=== PATIENT | male | born 1995 | race Caucasian/White ===

== ENCOUNTER 2021-10-22 18:29 | Emergency (ER) | payer MEDICAID, SELFPAY ==
[2021-10-22 18:39] VITALS: BP 126/81; PULSE 97; RESP 16; O2SAT 96
--- NOTE | 2021-10-22 18:54 | W.ED.GENADLT ---
HPI - General Adult General: Chief complaint: Psychiatric Symptoms Stated complaint: psych eval Time Seen by Provider: 10/22/21 18:31 History of Present Illness: HPI: [26]yo patient w/ hx of polysubstance use presenting to the emergency room for concerns of suicidal ideation. On arrival, patient tells me that he no thoughts of suicidal ideation, and does not currently have a plan. Patient tells me that he is currently homeless and does not have a place to go. On arrival, the patient is AAOx3 and cooperative with my evaluation. No focal complaints of chest pain, shortness of breath, palpitations, N/V, focal GI/ complaints. Currently denies SI/HI. Patient tells me that he hears voices but the voices are not telling him to hurt other people or himself. Onset: acute Duration: ongoing Location: home Severity: moderate Associated symptoms: Deny chest pain, dyspnea, nausea, rash, palpitations or vomiting Review of Systems Const: Denies: fever(s) or chills Eyes: Denies: change in vision ENMT: Denies: mouth pain Card: Denies: chest pain or palpitations Resp: Denies: dyspnea or non-productive cough GI: Denies: abdominal pain, nausea, vomiting or diarrhea : Denies: dysuria Musc: Denies: extremity pain Skin/Breast: Denies: rash or new lesions Neuro: Denies: weakness in extremities Psych: Reports: auditory hallucinations and other (Normal mood) Javid/Lymph: Denies: easy bruising PFS ED PFSH: Medical History Depression Social History (Updated 10/22/21 @ 19:12 by Wil Lujan MD) Smoking and tobacco status: current every day smoker Alcohol intake: never Substance/Drug Use: current Substance/Drug use frequency: daily Substance/Drug use type: Marijuana, Crack/Cocaine and Methamphetamine Physical Exam Const: COMMON NORMALS: alert HENMT: COMMON NORMALS: atraumatic HEAD & SCALP: atraumatic MOUTH: moist mucous membranes not abnormal Eye: COMMON NORMALS: EOMs intact bilaterally and conjunctivae normal CONJUNCTIVA: Yes conjunctivae normal Neck/C-Spine: COMMON NORMALS: full ROM and supple Resp: COMMON NORMALS: normal respiratory effort and clear to auscultation bilaterally AUSCULTATION: clear to auscultation bilaterally Cardio: COMMON NORMALS: regular rate RATE: regular rate GI: COMMON NORMALS: Soft to palpation and non-tender PALPATION: Yes Soft to palpation Extremity: COMMON NORMALS: full ROM Neuro: SENSORIUM/ORIENTATION: Yes alert MOTOR EXAM: No Abnormal motor strength present and Other motor observations present (no focal motor deficits) Psych: COMMON NORMALS: speech normal SPEECH: Yes normal speech MOOD & AFFECT: Yes euthymic mood Course Vital Signs: Vital signs: Vital Signs Pulse Rate 97 10/22/21 18:39 Respiratory Rate 16 10/22/21 18:39 Blood Pressure 126/81 10/22/21 18:39 Pulse Oximetry 96 10/22/21 18:39 MDM - General Adult Medical Decision Making [26]yo patient w/ hx of depression and polysbustance use presenting for concerns of SI. Patient currently does not endorse any SI. Patient tells me that he is homeless and needs a place to stay.. HDS, exam within normal limit Thoughts are linear and organized, and the patient has no AH/VH, or HI. Clinically the patient displays no overt toxidrome; they are well appearing, with low suspicion for toxic ingestion given history and exam. Symptoms unlikely 2/2 anemia, hypothyroidism, infection, or ICH. [7:30pm] On reassessment, patient is hemodynamically stable with no acute medical complaints. Case discussed with psychiatric provider Dr. Dick at [facility] psych inpatient who evaluated patient via telepsych and recommended discharge with close follow-up. Disposition: Discharge. We will attempt to have patient placed in homeless halfway either tonight or tomorrow morning. Discharge Plan Discharge Patient Disposition: Home Clinical Impression: Adult general medical exam Discharge Orders: Discharge ED (Routine); Ordered 10/22/21 Ordered By: Wil Lujan Discharge Diet: Advance as tolerated Discharge Activity: Increase activity as tolerated Activity Restrictions/Additional Instructions: Please come back to the emergency room if you need help, have any hallucinations, or you have any depression or have thoughts about hurting yourself or other people. Coding Level of Care Code ED Oyster Worker for Leanna Fwd Exam Comprehensive
[2021-10-22] MEDS: pantoprazole DR 40 mg Tablet PO (19:26)
[2021-10-22] MEDS: lidocaine 2% viscous 15 ML, aluminum-mag hydrox-simethicon 30 ML, sucralfate oral liq 1 GM PO (19:26)
== END 2021-10-22 19:42 | disposition home or self-care (01) ==
PROVIDERS: Emergency Provider Emergency Medicine
DX: R45.851 Suicidal ideations (principal); Z59.00 Homelessness unspecified; F32.A Depression, unspecified
CPT/HCPCS: 99283

== ENCOUNTER 2021-10-23 01:45 | Emergency (ER) | payer MEDICAID, SELFPAY ==
[2021-10-23 01:49] VITALS: BP 115/73; PULSE 77; RESP 17; O2SAT 99; BMI 20.7
[2021-10-23 01:53] VITALS: BP 118/73; PULSE 80; RESP 14; O2SAT 97
--- NOTE | 2021-10-23 02:07 | ED.C_ITS ---
HPI - Psych General: Chief Complaint: Psychiatric Symptoms Stated Complaint: MHE Time Seen by Provider: 10/23/21 01:49 Source: patient Mode of arrival: ambulatory Limitations: no limitations History of Present Illness: 26-year-old male who was seen here earlier for depression he is also homeless. Patient was discharged had been staying in the waiting room and was asked to leave he checked back in. Has not found he said he had thoughts of suicide he is denying it currently he states that he just wants a sandwich and needs a place to stay. He denies any suicidal thoughts to me. Associated symptoms: Reports depression and suicidal ideation Review of Systems Const: Denies: fever(s), chills, body aches or change in appetite Eyes: Denies: blurry vision or eye discomfort ENMT: Denies: throat pain or dental pain Card: Denies: chest pain Resp: Denies: dyspnea GI: Denies: abdominal pain, nausea, vomiting or diarrhea : Denies: dysuria Musc: Denies: neck pain or back pain Skin/Breast: Denies: rash Neuro: Denies: headache(s) Psych: Reports: depression and suicidal ideation Javid/Lymph: Denies: easy bruising All/Imm: Denies: urticaria PFSH ED PFSH: Medical History Depression Social History Smoking and tobacco status: current every day smoker Alcohol intake: never Physical Exam Const: COMMON NORMALS: no acute distress, patient oriented x3 and healthy appearing HENMT: COMMON NORMALS: normocephalic and atraumatic HEAD & SCALP: no rmocephalic and atraumatic Eye: COMMON NORMALS: Equal, round and reactive pupils present and EOMs intact bilaterally PUPIL: Yes Equal, round and reactive pupils present Neck/C-Spine: COMMON NORMALS: full ROM and supple Chest: COMMONS NORMALS: normal inspection of the chest and normal palpation of entire chest wall Resp: COMMON NORMALS: normal respiratory effort, No retractions, No use of accessory muscles and clear to auscultation bilaterally AUSCULTATION: clear to auscultation bilaterally Cardio: COMMON NORMALS: regular rate, regular rhythm and No murmurs present (Cardio) RATE: regular rate RHYTHM: regular rhythm GI: COMMON NORMALS: Normal to inspection, nondistended, normoactive bowel sounds present, Soft to palpation, non-tender and no masses PALPATION: Yes Soft to palpation Extremity: COMMON NORMALS: normal to inspection and full ROM Neuro: COMMON NORMALS: patient oriented x3, moves all extremities and no focal motor deficits Psych: COMMON NORMALS: mental status grossly normal, Normal thought process present and cooperative THOUGHT PROCESS: Normal thought process present Skin: COMMON NORMALS: no rashes or lesions noted and no wounds GENERAL SKIN EXAM: no rashes or lesions noted Course Vital Signs: Vital signs: Vital Signs Pulse Rate 77 10/23/21 01:49 Respiratory Rate 17 10/23/21 01:49 Blood Pressure 115/73 10/23/21 01:49 Pulse Oximetry 99 10/23/21 01:49 MDM - Psych Medical Decision Making Patient presents here with homelessness he checked back in when he is asked to leave the hospital he initially said that he was suicidal but he denies it to me he states that he really wants a place to stay I did tell him that we run into beds and he does not want to be transferred I spoke to psychiatry Dr. Dick who did evaluate him earlier who feels he is not actively suicidal I agree with this I believe patient stable for discharge we will discharge him at this time. Discharge Plan Discharge Patient Disposition: Home Clinical Impression: Homeless, Depression Condition: Stable Discharge Orders: Discharge ED (Routine); Ordered 10/23/21 Ordered By: Pa Cunha Discharge Diet: Advance as tolerated Discharge Activity: Resume usual activity Patient Instructions: Depression (ED) Coding Level of Care Code ED Commercial Ocean Clammer for Leanna Cuevas
[2021-10-23 03:34] VITALS: BP 118/73; PULSE 80; RESP 14; O2SAT 97
== END 2021-10-23 03:37 | disposition home or self-care (01) ==
PROVIDERS: Emergency Provider Emergency Medicine
DX: F32.A Depression, unspecified (principal); Z59.00 Homelessness unspecified; F17.210 Nicotine dependence, cigarettes, uncomplicated
CPT/HCPCS: 99283

== ENCOUNTER 2023-10-30 11:23 | Emergency (ER) | payer MEDICAID, SELFPAY ==
--- NOTE | 2023-10-30 11:27 | XRR_ITS ---
PROCEDURE INFORMATION: Exam: XR Chest Exam date and time: 10/30/2023 11:47 AM Age: 28 years old Clinical indication: Pain; Angina pectoris; Additional info: Cp TECHNIQUE: Imaging protocol: Radiologic exam of the chest. Views: 1 view. COMPARISON: No relevant prior studies available. FINDINGS: Lungs: Unremarkable. No consolidation. Pleural spaces: Unremarkable. No pleural effusion. No pneumothorax. Heart/Mediastinum: Unremarkable. No cardiomegaly. Bones/joints: Unremarkable. XR/XR chest 1V portable [id number] IMPRESSION: No acute findings.
--- NOTE | 2023-10-30 11:34 | ECG_ITS ---
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 Measurements Intervals [place] Rate: 84 P: 69 IN: 145 QRS: 104 QRSD: 89 T: -10 QT: 343 QTc: 406 Interpretive Statements SINUS RHYTHM RIGHT AXIS DEVIATION [QRS AXIS > 100] POSSIBLE RIGHT VENTRICULAR CONDUCTION DELAY [RSR (QR) IN V1/V2] MINIMAL ST DEPRESSION [0.025+ mV ST DEPRESSION] ABNORMAL QRS-T ANGLE [QRS-T AXIS DIFFERENCE > 60] INTERPRETATION BASED ON A DEFAULT AGE OF 40 YEARS No previous ECG available for comparison Electronically Signed On 10-30-2023 22:22:20 CDT by Brian Potts M.D. [id number]
[2023-10-30 11:42] VITALS: BP 111/64; PULSE 88; RESP 17; TEMP 37.2; O2SAT 98; BMI 22.9
[2023-10-30 14:05] VITALS: BP 132/73; PULSE 85; RESP 18
--- NOTE | 2023-10-30 14:32 | ED_ITS ---
HPI - Chest Pain 2 General: Chief Complaint: Chest Pain Stated Complaint: chest pain, dry cough, right hand tingles Time Seen by Provider: 10/30/23 13:59 Source: patient Mode of arrival: ambulatory History of Present Illness: 28-year-old male presents emergency room with chest discomfort worse when he takes a deep breath. He has had a nonproductive cough for the last couple days it is also worse. Pads over. He has not particularly been short of breath no fever sweats or chills he has had it off and on for some time now he localizes to the left lower lung field at this time. He is not having any pain at the moment. No rapid heart rate or palpitations. No history of DVT or PE no limb swelling or discomfort. MD complaint: chest pain Pain location: left chest Pain radiation: none Quality: sharp Exacerbating factors: inspiration Associated symptoms: Deny abdominal pain, diaphoresis, dyspnea, fever(s), leg edema, nausea, palpitations, sense of impending doom, syncope or vomiting Treatment prior to arrival: none Review of Systems 2 Const: Denies: fever(s), chills or diaphoresis Card: Denies: chest pain, palpitations or syncope Resp: Denies: dyspnea GI: Denies: abdominal pain, nausea or vomiting : Denies: dysuria, urinary frequency or urinary urgency Musc: Denies: neck pain or back pain Skin/Breast: Denies: rash PFSH ED 2 PFSH: Medical History Depression Social History Smoking and tobacco/nicotine status: current every day tobacco/nicotine user Alcohol intake: never Substance/Drug Use: current Substance/Drug use frequency: daily Physical Exam 2 Const: COMMON NORMALS: no acute distress GENERAL APPEARANCE: cooperative and comfortable ORIENTATION/CONSCIOUSNESS: Yes awake, Yes oriented to person, Yes oriented to place and Yes oriented to time HENMT: COMMON NORMALS: normocephalic, atraumatic and hearing grossly normal bilaterally HEAD & SCALP: normocephalic and atraumatic Resp: COMMON NORMALS: normal respiratory effort, No retractions, No use of accessory muscles and clear to auscultation bilaterally AUSCULTATION: clear to auscultation bilaterally Cardio: COMMON NORMALS: regular rate, regular rhythm and No murmurs present (Cardio) RATE: regular rate RHYTHM: regular rhythm GI: COMMON NORMALS: Soft to palpation and No hepatosplenomegaly present A USCULTATION: Yes normoactive bowel sounds PALPATION: Yes Soft to palpation, No Tenderness to palpation present (GI), No Guarding due to palpation present (GI) and Yes No hepatosplenomegaly present Extremity: COMMON NORMALS: normal to inspection, capillary refill normal, no clubbing, cyanosis or edema, no calf tenderness and no pedal edema Neuro: SENSORIUM/ORIENTATION: Yes oriented to person, Yes oriented to place and Yes oriented to time Skin: COMMON NORMALS: no rashes or lesions noted GENERAL SKIN EXAM: no rashes or lesions noted Course 2 Vital Signs: Vital signs: Vital Signs Temperature 99.0 F 10/30/23 11:42 Pulse Rate 85 10/30/23 14:05 Respiratory Rate 18 10/30/23 14:05 Blood Pressure 132/73 10/30/23 14:05 Pulse Oximetry 98 10/30/23 11:42 Oxygen Delivery Me thod Room Air 10/30/23 11:42 MDM - Chest Pain Medical Decision Making EKG normal troponin normal patient has had this for couple days not cardiac in nature worse when he takes a deep breath. Chest x-ray normal no leukocytosis discharge home pleuritic chest pain anti-inflammatories as needed follow-up as needed. He has no sign of PE or pneumothorax. Medical Records I reviewed the patient's medical records. Lab Data I reviewed the patient's lab results. 10/30/23 14:41 10/30/23 14:41 Radiology Impressions Chest X-Ray 10/30/23 11:27 IMPRESSION: No acute findings. Laboratory Results WBC 6.39 10^3/uL (3.29-11.43) 10/30/23 14:41 RBC 4.45 10^6/uL (3.85-5.65) 10/30/23 14:41 Hgb 13.70 g/dL (11.27-16.99) 10/30/23 14:41 Hct 40.0 % (37-53) 10/30/23 14:41 MCV 89.9 fl (82-101) 10/30/23 14:41 MCH 30.8 pg (27-33) 10/30/23 14:41 MCHC 34.3 g/dL (30-55) 10/30/23 14:41 RDW 12.5 % (12.1-15.1) 10/30/23 14:41 Plt Count 205 10^3/cmm (157-399) 10/30/23 14:41 MPV 10.5 fL (7.4-10.4) H 10/30/23 14:41 Neut % (Auto) 83.5 % 10/30/23 14:41 Lymph % (Auto) 6.7 % 10/30/23 14:41 Cowley % (Auto) 8.1 % 10/30/23 14:41 Eos % (Auto) 0.9 % 10/30/23 14:41 Baso % (Auto) 0.5 % 10/30/23 14:41 Neut # (Auto) 5.33 10^3/uL (1.8-7.7) 10/30/23 14:41 Lymph # (Auto) 0.4 10^3/uL (0.8-4.8) L 10/30/23 14:41 Cowley # (Auto) 0.5 10^3/uL (0.2-0.9) 10/30/23 14:41 Eos # (Auto) 0.1 10^3/uL (0.0-0.8) 10/30/23 14:41 Baso # (Auto) 0.0 10^3/uL (0.0-0.1) 10/30/23 14:41 Nucleated RBC % (auto) 0 % 10/30/23 14:41 Nucleated RBCs # 0.0 /100WBC 10/30/23 14:41 Sodium 136 mmol/L (136-145) 10/30/23 14:41 Potassium 4.1 mmol/L (3.5-5.1) 10/30/23 14:41 Chloride 100 mmol/L (98-107) 10/30/23 14:41 Carbon Dioxide 25 mmol/L (22-29) 10/30/23 14:41 Anion Gap 15.1 (5-19) 10/30/23 14:41 BUN 9 mg/dL (6-20) 10/30/23 14:41 Creatinine 1.1 mg/dL (0.7-1.2) 10/30/23 14:41 GFR Calculation 79.1 mL/min (90-130) L 10/30/23 14:41 Glucose 91 mg/dL (65-115) 10/30/23 14:41 Calculated Osmolality 280 mOsm/kg (285-295) L 10/30/23 14:41 Calcium 9.1 mg/dL (8.5-10.5) 10/30/23 14:41 Total Bilirubin 0.8 mg/dL (0.15-1.2) 10/30/23 14:41 AST 16 U/L (0-40) 10/30/23 14:41 ALT 12 U/L (0-41) 10/30/23 14:41 Alkaline Phosphatase 60 U/L (40-130) 10/30/23 14:41 Troponin T Baseline < 6 ng/L (0-15) 10/30/23 14:41 Total Protein 7.4 g/dL (6.6-8.7) 10/30/23 14:41 Albumin 4.6 g/dL (3.5-5.2) 10/30/23 14:41 Globulin 2.8 g/dL (1.3-4.6) 10/30/23 14:41 All radiology interpretation(s) finalized by discharge Discharge Plan Discharge Patient Disposition: Home Clinical Impression: Pleuritic chest pain Condition: Stable Prescriptions: New diclofenac sodium 75 mg tablet,delayed release (DR/EC) 75 mg PO Q12H PRN (Reason: pain) Qty: 20 0RF Discharge Orders: Discharge ED (Routine); Ordered 10/30/23 Ordered By: Gibran Chilel Discharge Diet: Usual diet Discharge Activity: Increase activity as tolerated Patient Instructions: Pleurisy (ED), Opioid Safety, Pain Management Activity Restrictions/Additional Instructions: Thank you for choosing [facility] for your healthcare needs today. It is very important that you follow up as instructed or that you return to the Emergency Department should you have concerns or if your condition changes or worsens in any way. Coding Level of Care Code ED Child Welfare Consultant for Leanna Cuevas
[2023-10-30 14:48] LABS: Basophils % 0.5 %; Eosinophils # 0.1 10^3/uL (0.0-0.8); Eosinophils % 0.9 %; Lymphocytes # 0.4 10^3/uL (0.8-4.8); Lymphocytes % 6.7 %; Mean Corpuscular HGB Conc 34.3 g/dL (30-55); Mean Corpuscular Hemoglobin 30.8 pg (27-33); Mean Corpuscular Volume 89.9 fl (82-101); Mean Platelet Volume 10.5 fL (7.4-10.4); Monocytes # 0.5 10^3/uL (0.2-0.9); Monocytes % 8.1 %; Neutrophils # 5.33 10^3/uL (1.8-7.7); Neutrophils % 83.5 %; Nucleated Red Blood Cells % 0 %; Platelet Count 205 10^3/cmm (157-399); Red Blood Count 4.45 10^6/uL (3.85-5.65); Red Cell Distribution Width 12.5 % (12.1-15.1); White Blood Count 6.39 10^3/uL (3.29-11.43)
[2023-10-30 15:08] LABS: Alanine Aminotransferase 12 U/L (0-41); Albumin Level 4.6 g/dL (3.5-5.2); Alkaline Phosphatase 60 U/L (40-130); Anion Gap 15.1 (5-19); Aspartate Amino Transferase 16 U/L (0-40); Blood Urea Nitrogen 9 mg/dL (6-20); Calcium 9.1 mg/dL (8.5-10.5); Carbon Dioxide 25 mmol/L (22-29); Chloride 100 mmol/L (98-107); Creatinine Clr Calc Pharmacy 102.0723; Globulin 2.8 g/dL (1.3-4.6); Glomerular Filtration Rate 79.1 mL/min (90-130); Glucose 91 mg/dL (65-115); Osmolality Calculated 280 mOsm/kg (285-295); Potassium 4.1 mmol/L (3.5-5.1); Sodium 136 mmol/L (136-145); Total Bilirubin 0.8 mg/dL (0.15-1.2); Total Protein 7.4 g/dL (6.6-8.7)
--- NOTE | 2023-10-30 15:09 | ECG_ITS ---
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 Measurements Intervals [place] Rate: 76 P: 66 [place]: 129 QRS: 82 QRSD: 99 T: 39 QT: 359 QTc: 405 Interpretive Statements SINUS RHYTHM POSSIBLE LEFT ATRIAL ENLARGEMENT [-0.1mV P-WAVE IN V1/V2] INCOMPLETE RIGHT BUNDLE BRANCH BLOCK [90+ ms QRS DURATION, TERMINAL R IN V1/V2, 40+ ms S IN I/aVL/V4/V5/V6] Compared to ECG 10/30/2023 11:34:36 Incomplete right bundle-branch block now present Right-axis deviation no longer present ST (T wave) deviation no longer present Electronically Signed On 10-30-2023 22:22:36 CDT by Brian Potts M.D. [id number]
[2023-10-30 15:42] LABS: Troponin(5th) Baseline < 6 ng/L (0-15)
== END 2023-10-30 16:08 | disposition home or self-care (01) ==
PROVIDERS: Emergency Provider Family Medicine
DX: R07.81 Pleurodynia (principal); Z72.0 Tobacco use
CPT/HCPCS: 36415; 71045; 80053; 84484; 85025; 93005; 99285